=== PATIENT | male | born 1985 | race Caucasian/White ===

== ENCOUNTER 2017-12-20 06:54 | Emergency (ER) | payer SELFPAY ==
[~2017-12-20] VITALS: Ht 172.7 cm; Wt 77.1 kg
--- OUTSIDE RECORDS SUMMARY | 2017-12-20 06:57 | XMS REPORT ---
Author Author [facility] Address Unknown Phone Unavailable Care Team Providers Care Technician Support Engineer Name Role Phone KAELYN LLANOS PP Unavailable Problems This patient has no known problems. Allergies, Adverse Reactions, Alerts This patient has no known allergies or adverse reactions. Medications This patient has no known medications. Encounters Start Date/Time End Date/Time Encounter Type Admission Type Attending Clinicians Care Facility Care Department Encounter ID 2016-09-08 13:19:00 Inpatient C [facility] [id number]
[2017-12-20] MEDS ORDERED: METHYLPREDNISOLONE SOD SUCC 125 MG/2ML VIAL IV ONE (08:30)
[2017-12-20] MEDS ORDERED: GRISEOFULVIN PO (08:32)
[2017-12-20] MEDS ORDERED: KEFLEX500 MG PO (08:33)
[2017-12-20] MEDS ORDERED: PREDNISONE20 MG PO (08:46)
[2017-12-20] MEDS ORDERED: CICLOPIROX120 ML TOP (08:55)
== END 2017-12-20 09:22 | disposition home or self-care (01) ==
LOC: ER 06:54
DX: L20.84 Intrinsic (allergic) eczema (principal); B35.0 Tinea barbae and tinea capitis
CPT/HCPCS: 99282; J2930

== ENCOUNTER 2020-09-10 18:31 | Emergency (ER) | payer SELFPAY ==
[~2020-09-10] VITALS: Ht 172.7 cm; Wt 81.6 kg
[~2020-09-10 18:31] MED LIST: CICLOPIROX120 ML TOP; GRISEOFULVIN PO; KEFLEX500 MG PO; PREDNISONE20 MG PO
== END 2020-09-10 23:21 | disposition home or self-care (01) ==
LOC: ER 19:19
DX: L72.8 Other follicular cysts of the skin and subcutaneous tissue (principal)